=== PATIENT | female | born 1995 | race Two or more races ===

== ENCOUNTER 2017-09-27 20:32 | Emergency (ER) | payer OTHER ==
[~2017-09-27] VITALS: Ht 170.2 cm; Wt 74.7 kg
[~2017-09-27 20:32] MED LIST: KEFLEX500 MG PO; NAPROSYN500 MG PO; PYRIDIUM200 MG PO
[2017-09-27 21:08] LABS: HEMATOCRIT 37.6 % (36.0-46.0); HEMOGLOBIN 12.5 G/DL (11.9-15.5); MCH 27.2 PG (29.0-34.0); MCHC 33.2 G/DL (30.0-36.0); MCV 81.7 FL (83-99); PLATELET COUNT 217 K/uL (156-360); RBC DIS.WIDTH-CV 14.3 % (11.8-14.6); RBC DIS.WIDTH-SD 42.2 % (39-53); WHITE BLOOD COUNT 11.4 K/uL (4.1-10.2)
[2017-09-27 21:20] LABS: APPEARANCE CLEAR ((CLEAR)); BILIRUBIN NEGATIVE; BLOOD NEGATIVE; COLOR STRAW ((YELLOW)); GLUCOSE (STRIP) NEGATIVE; KETONES NEGATIVE; LEUKOCYTES NEGATIVE; NITRITE NEGATIVE; PROTEIN (STRIP) NEGATIVE; UCUL ADDED? NO; UROBILINOGEN 0.2 MG/DL (0.2-1.0)
[2017-09-27 21:33] LABS: ALBUMIN 4.7 G/DL (3.2-4.8); CHLORIDE 104 MEQ/L (99-109); POTASSIUM 3.9 MEQ/L (3.7-5.4); SODIUM 139 MEQ/L (136-147); TOTAL BILIRUBIN 0.3 MG/DL (0.0-1.0)
[2017-09-27 21:39] LABS: ALKALINE PHOSPHATASE 88 IU/L (3-129); ALT (GPT) 15 IU/L (3-49); AST (GOT) 18 IU/L (2-34); CREATININE 0.7 MG/DL (0.6-1.3); GFR ESTIMATE (CALCULATED) > 59 mL/min/; GLUCOSE 131 mg/dL (70-99); LIPASE 14 U/L (1.0-51.0); TOTAL PROTEIN 7.2 G/DL (6.4-8.3); UREA NITROGEN (BUN) 10 mg/dL (9-23)
[2017-09-27 21:43] LABS: QUANTITATIVE HCG < 4.0 MIU/ML
[2017-09-28] MEDS ORDERED: CARAFATE1 GM PO (01:36)
[2017-09-28] MEDS ORDERED: PRILOSEC20 MG PO (01:36)
[2017-09-28 01:42] VITALS: BP 130/85
[2017-09-29] MEDS ORDERED: ZOFRAN ODT4 MG PO (20:05)
== END 2017-09-28 01:48 | disposition home or self-care (01) ==
LOC: EME 20:32 → EXP 20:32
DX: K29.70 Gastritis, unspecified, without bleeding (principal); Z87.440 Personal history of urinary (tract) infections
CPT/HCPCS: 74019; 76705; 80053; 81003; 83690; 84702; 85027; 99281; 99284; J1885

== ENCOUNTER 2017-09-29 13:37 | Emergency (ER) | payer OTHER ==
[~2017-09-29] VITALS: Ht 157.5 cm; Wt 73.8 kg
[~2017-09-29 13:37] MED LIST changes: +CARAFATE1 GM PO; +PRILOSEC20 MG PO
[2017-09-29 14:30] LABS: HEMATOCRIT 38.3 % (36.0-46.0); HEMOGLOBIN 12.8 G/DL (11.9-15.5); MCH 27.5 PG (29.0-34.0); MCHC 33.4 G/DL (30.0-36.0); MCV 82.2 FL (83-99); PLATELET COUNT 212 K/uL (156-360); RBC DIS.WIDTH-CV 14.5 % (11.8-14.6); RBC DIS.WIDTH-SD 43.1 % (39-53); RED BLOOD COUNT 4.66 M/uL (3.80-5.20); WHITE BLOOD COUNT 7.9 K/uL (4.1-10.2)
[2017-09-29 14:42] LABS: ALBUMIN 4.8 g/dL (3.2-4.8)
[2017-09-29 14:43] LABS: CHLORIDE 106 mEq/L (99-109); SODIUM 141 mEq/L (136-147)
[2017-09-29 14:45] LABS: TOTAL PROTEIN 7.7 g/dL (6.4-8.3)
[2017-09-29 14:47] LABS: TOTAL BILIRUBIN 0.5 mg/dL (0.0-1.0)
[2017-09-29 14:48] LABS: ALKALINE PHOSPHATASE 91 IU/L (3-129)
[2017-09-29 14:49] LABS: CREATININE 0.8 mg/dL (0.6-1.3); GFR ESTIMATE (CALCULATED) > 59 mL/min/
[2017-09-29 14:50] LABS: UREA NITROGEN (BUN) 8 mg/dL (9-23)
[2017-09-29 14:51] LABS: AST (GOT) 18 IU/L (2-34)
[2017-09-29 14:52] LABS: ALT (GPT) 18 IU/L (3-49)
[2017-09-29 14:55] LABS: GLUCOSE 85 mg/dL (70-99)
[2017-09-29 14:59] LABS: QUANTITATIVE HCG < 4.0 MIU/ML
[2017-09-29 18:01] LABS: AMYLASE 55 IU/L (1-118)
[2017-09-29 18:09] LABS: LIPASE 15 U/L (1.0-51.0)
[2017-09-29 19:21] LABS: APPEARANCE SL.HAZY ((CLEAR)); BILIRUBIN NEGATIVE; BLOOD NEGATIVE; COLOR YELLOW ((YELLOW)); GLUCOSE (STRIP) NEGATIVE; KETONES 20; LEUKOCYTES NEGATIVE; NITRITE NEGATIVE; PROTEIN (STRIP) NEGATIVE; SPECIFIC GRAVITY 1.017 (1.000-1.030); UROBILINOGEN 0.2 MG/DL (0.2-1.0)
[2017-09-29 19:30] LABS: BACTERIA RARE /HPF; EPITHELIAL CELLS 2+ /HPF; MUCUS 2+ /LPF; RED BLOOD CELLS 0-5 /HPF (0-5); UCUL ADDED? YES
[2017-09-29] MEDS ORDERED: ZOFRAN ODT4 MG PO (20:05)
[2017-09-29 20:56] VITALS: BP 122/62
== END 2017-09-29 20:56 | disposition home or self-care (01) ==
LOC: EME 13:37
DX: R10.13 Epigastric pain (principal); R10.11 Right upper quadrant pain; R11.2 Nausea with vomiting, unspecified; R91.1 Solitary pulmonary nodule
CPT/HCPCS: 74177; 80053; 81003; 82150; 83690; 84702; 85027; 87086; J2405; J7030

== ENCOUNTER → 2017-10-11 | Outpatient (CLI) | payer BC ==
[~2017-10-11] VITALS: Ht 157.5 cm; Wt 72.6 kg
[~2017-10-11] MED LIST changes: +GI COCKTAIL PO; +PROTONIX40 MG PO; +PROVERA,CYCRIN10 MG PO; +TYLENOL EXTRA500 MG PO; +VENTOLIN HFA18 GM IH; +ZOFRAN ODT4 MG PO
== END | disposition home or self-care (01) ==
LOC: AMB 09:28
PROC: 0DB68ZX Excision of Stomach, Via Natural or Artificial Opening Endoscopic, Diagnostic (ICD-10-PCS; principal; 2017-10-11)
DX: K29.70 Gastritis, unspecified, without bleeding (principal)
CPT/HCPCS: 88305; 88342 TC; J2250; J2405